=== PATIENT | male | born 1985 | race Caucasian/White ===

== ENCOUNTER 2016-10-27 19:00 | Emergency (ER) | payer MEDICAID ==
[~2016-10-27] VITALS: Ht 175.3 cm; Wt 68.0 kg
[2016-10-27 21:01] VITALS: BP 149/71
== END 2016-10-27 21:09 | disposition home or self-care (01) ==
LOC: EMS 19:02
DX: M77.9 Enthesopathy, unspecified (principal)
CPT/HCPCS: 29280; 99284